=== PATIENT | female | born 1980 | race Caucasian/White ===

== ENCOUNTER 2016-12-09 11:44 | Emergency (ER) ==
[2016-12-09 11:44] VITALS: BMI 28.3
[2016-12-09 11:50] VITALS: BP 137/90; TEMP 96.7
--- NOTE | 2016-12-09 12:33 | ED.PDOC ---
General ED Provider: Dr. ALISON GARCIA JR Chief Complaint: Vaginal Discharge/Swelling Stated Complaint: pt used a deoderant tampon once last month and states she is allergic to perfumes. since then she has been itching, possibly scratched some areas raw. feels a lot of pressure and has large amount of creamy brown discharge with foul odor[End]1 month 96.7 101 18 98% 137/90 10 Time Seen by Physician: 12:31 Mode of Arrival: Walk-In Information Source: Patient Exam Limitations: Altered mental status Primary Care Provider: MAXIMUS HURLEY Nursing and Triage Documentation Reviewed and Agree: No Review of Systems - Review Of Systems Constitutional: Reports: No symptoms Eyes: Reports: No symptoms Ears, Nose, Mouth, Throat: Reports: No symptoms Respiratory: Reports: No symptoms Cardiac: Reports: No symptoms GI: Reports: No symptoms : Reports: Burning, Discharge, Pain Musculoskeletal: Reports: No symptoms Skin: Reports: Lesions, Lumps Neurological: Reports: No symptoms Endocrine: Reports: No symptoms Hematologic/Lymphatic: Reports: No symptoms All Other Systems: Other Past Medical History - Past Medical History Previously Healthy: No Endocrine: Reports: Dyslipidemia Cardiovascular: Reports: None, Hypertension Respiratory: Reports: None Hematological: Reports: None Gastrointestinal: Reports: GERD Genitourinary: Reports: None Neuro/Psych: Reports: Anxiety, Depression, Bipolar Disorder, Schizophrenia, PTSD Musculoskeletal: Reports: None, Arthritis Cancer: Reports: None Last Menstrual Period: nov 3 - Surgical History General Surgical History: Reports: Tubal ligation, Unknown - Family History Family History: Reports: Unknown - Social History Smoking Status: Current every day smoker Hx Substance Use: No Alcohol Screening: Occasionally Physical Exam - Physical Exam Appearance: Ill-appearing Pain Distress: Moderate Eyes: KOLE, EOMI, Conjunctiva clear ENT: Ears normal, Nose normal, Oropharynx normal Neck: Supple Respiratory: Airway patent, Breath sounds clear, Breath sounds equal, Respirations nonlabored Cardiovascular: RRR, Pulses normal, No rub, No murmur GI/: Soft, No masses, Bowel sounds normal, No Organomegaly, Tender, Mass ( superficial nodules) Musculoskeletal: Normal strength, ROM intact, No edema, No calf tenderness Skin: Warm, Dry, Normal color Neurological: Sensation intact, Motor intact, Reflexes intact, Cranial nerves intact, Alert, Oriented Psychiatric: Affect appropriate, Mood appropriate Critical Care Note - Critical Care Note Total Time (mins): 0 Course - Course Orders, Labs, Meds: Lab Review 12/09/16 13:31 Clue Cells (Wet Prep) None seen Trichomonas (Wet Prep) None seen Vaginal WBC Few DMITRY Preparation No fungal elements Orders Category Date Time Status CHLAMYDIA/GC AMPLIFICATION Stat LAB 12/09/16 13:31 Received DMITRY PREP Stat LAB 12/09/16 13:31 Completed VAGINAL CULTURE [GENITAL CULTURE] Stat LAB 12/09/16 13:31 Received WET PREP Stat LAB 12/09/16 13:31 Completed Ceftriaxone Sodium [Rocephin] MEDS 12/09/16 12:54 Discontinued 250 mg IM ONCE STA Lidocaine HCl/Pf [Lidocaine 1 % Amp 5 ml (Sutures)] MEDS 12/09/16 12:54 Discontinued 0.9 ml IM ONCE STA Medications Discontinued Medications Generic Name Dose Route Start Last Admin Trade Name Freq PRN Reason Stop Dose Admin Ceftriaxone Sodium 250 mg 12/09/16 12:54 12/09/16 13:06 Rocephin IM 12/09/16 12:55 250 mg ONCE STA Administration Lidocaine HCl 0.9 ml 12/09/16 12:54 12/09/16 13:07 Lidocaine 1 % Amp 5 Ml (Sutures) IM 12/09/16 12:55 0.9 ml ONCE STA Administration Vital Signs: Temp Pulse Resp BP Pulse Ox 12/09/16 11:44 96.7 F L 101 H 18 137/90 98 Departure - Departure Time of Disposition: 13:37 Disposition: HOME SELF-CARE Discharge Problem: Vaginal discharge Instructions: Bacterial Vaginosis (ED) Condition: Good Pt referred to PMD for follow-up: Yes Additional Instructions: no fungal or yeast seen on tests Rocephin given finish doxycycline and metronidazole discharge should resolve quickly recheck next week PMD culture results return if fever or worsening Prescriptions: Doxycycline Monohydrate [Monodox] 100 mg PO BID #20 capsule Metronidazole [Flagyl] 500 mg PO BID #20 tablet Allergies/Adverse Reactions: Allergies codeine Adverse Reaction (Verified 07/18/16 13:36) perfume Adverse Reaction (Verified 12/09/16 11:50) rosuvastatin calcium [From Crestor] Adverse Reaction (Verified 07/18/16 13:36) poppy seed salad dressing Adverse Reaction (Uncoded 07/08/16 13:08) Home Medications: Ambulatory Orders Clonazepam [Klonopin] 0.5 mg PO QID #120 10/06/16 Sertraline HCl [Zoloft] 100 mg PO BID #60 10/06/16 Trazodone HCl 100 mg PO BEDTIME #30 10/06/16 Ziprasidone HCl [Geodon] 60 mg PO BID #60 10/06/16 Doxycycline Monohydrate [Monodox] 100 mg PO BID #20 capsule 12/09/16 Fenofibrate 54 mg PO DAILY 12/09/16 Metronidazole [Flagyl] 500 mg PO BID #20 tablet 12/09/16
[2016-12-09] MEDS ORDERED: ROCEPHIN IM STA (12:54)
[2016-12-09] MEDS ORDERED: LIDOCAINE 1 % AMP 5 ML (SUTURES) IM STA (12:54)
[2016-12-09 13:32] LABS: KOH PREP NO FUNGAL ELEMENTS (NOT PRESENT); WBC FEW (FEW)
[2016-12-13 15:14] LABS: GENITAL CULTURE Final report (.)
== END 2016-12-09 13:57 | disposition home or self-care (01) ==
LOC: ED 11:44
DX: N76.0 Acute vaginitis (principal); F17.210 Nicotine dependence, cigarettes, uncomplicated
CPT/HCPCS: 36415; 87070; 87210; 87800; 96372; 99283

== ENCOUNTER 2016-12-26 08:16 | Outpatient (CLI) ==
[2016-12-26 13:19] LABS: ALBUMIN 3.6 g/dL (3.4-5.0); ALBUMIN/GLOBULIN RATIO 0.9; ANION GAP 13.3; BILIRUBIN,TOTAL 0.36 mg/dL (0.00-1.20); BUN/CREATININE RATIO 13.63; CALCIUM 9.5 mg/dL (8.2-10.2); CHOL/HDL RATIO 5.3 (4.5-5.5); CREATININE 0.88 mg/dL (0.60-1.30); POTASSIUM 4.3 mmol/L (3.5-5.10); TOTAL PROTEIN 7.6 g/dL (6.4-8.2)
== END 2016-12-26 08:17 | disposition home or self-care (01) ==
LOC: LAB 08:16
PROVIDERS: ATTEND Nurse Practitioner Family
DX: E78.5 Hyperlipidemia, unspecified (principal)
CPT/HCPCS: 36415; 80053; 80061

== ENCOUNTER 2017-03-24 12:06 | Outpatient (CLI) ==
[2017-03-24 13:48] LABS: BASOPHILS # (AUTO) 0.1 K/uL (0-0.2); BASOPHILS % (AUTO) 0.7 % (0.0-3.0); EOSINOPHILS # (AUTO) 0.1 K/ul (0.0-0.7); EOSINOPHILS % (AUTO) 1.5 % (0.0-7.0); HEMATOCRIT 44.2 % (37.0-47.0); HEMOGLOBIN 14.6 g/dl (12.0-16.0); IMMATURE GRANULOCYTE % (AUTO) 0.4 % (0.0-5.0); LYMPHOCYTES # (AUTO) 2.1 K/uL (0.60-3.4); MEAN CORPUSCULAR HEMOGLOBIN 28.7 pg (27.0-31.0); MEAN CORPUSCULAR VOLUME 86.8 fl (81.0-99.0); MONOCYTES # (AUTO) 0.5 K/uL (0.4-2.0); MONOCYTES % (AUTO) 6.1 (0-10); NEUTROPHILS # (AUTO) 5.6 K/ul (2.0-6.9); NEUTROPHILS % (AUTO) 66.3; PLATELET COUNT 284 10^3/uL (140-440); RED BLOOD COUNT 5.09 10^6/ul (4.20-5.40); WHITE BLOOD COUNT 8.41 K/ul (4.6-10.2)
[2017-03-24 15:22] LABS: ALBUMIN 3.8 g/dL (3.4-5.0); ALBUMIN/GLOBULIN RATIO 0.93; ANION GAP 12.2; BILIRUBIN,TOTAL 0.55 mg/dL (0.00-1.20); BUN/CREATININE RATIO 14.13; CALCIUM 9.4 mg/dL (8.2-10.2); CHOL/HDL RATIO 4.9 (4.5-5.5); CREATININE 0.92 mg/dL (0.60-1.30); POTASSIUM 4.2 mmol/L (3.5-5.10); TOTAL PROTEIN 7.9 g/dL (6.4-8.2)
== END 2017-03-24 12:07 | disposition home or self-care (01) ==
LOC: LAB 12:06
PROVIDERS: ATTEND Nurse Practitioner Family
DX: F32.9 Major depressive disorder, single episode, unspecified (principal); E78.5 Hyperlipidemia, unspecified; R73.09 Other abnormal glucose
CPT/HCPCS: 36415; 80053; 80061; 83036; 85025

== ENCOUNTER 2017-08-18 12:54 | Outpatient (CLI) ==
[2017-08-18 13:09] LABS: BASOPHILS # (AUTO) 0.1 K/uL (0-0.2); EOSINOPHILS # (AUTO) 0.7 K/ul (0.0-0.7); EOSINOPHILS % (AUTO) 5.7 % (0.0-7.0); HEMATOCRIT 35.2 % (37.0-47.0); HEMOGLOBIN 11.8 g/dl (12.0-16.0); IMMATURE GRANULOCYTE % (AUTO) 0.5 % (0.0-5.0); LYMPHOCYTES # (AUTO) 2.1 K/uL (0.60-3.4); LYMPHOCYTES % (AUTO) 16.9 (10.0-50.0); MEAN CORPUSCULAR HEMOGLOBIN 28.7 pg (27.0-31.0); MEAN CORPUSCULAR HGB CONC 33.5 (31.8-35.4); MEAN CORPUSCULAR VOLUME 85.6 fl (81.0-99.0); MONOCYTES # (AUTO) 0.9 K/uL (0.4-2.0); MONOCYTES % (AUTO) 7.3 (0-10); NEUTROPHILS # (AUTO) 8.4 K/ul (2.0-6.9); NEUTROPHILS % (AUTO) 68.6; PLATELET COUNT 448 10^3/uL (140-440); RED BLOOD COUNT 4.11 10^6/ul (4.20-5.40); WHITE BLOOD COUNT 12.21 K/ul (4.6-10.2)
[2017-08-18 13:27] LABS: ALBUMIN 3.3 g/dL (3.4-5.0); ALBUMIN/GLOBULIN RATIO 0.83; ANION GAP 14.7; BILIRUBIN,TOTAL 0.49 mg/dL (0.00-1.20); BUN/CREATININE RATIO 13.18; CALCIUM 9.7 mg/dL (8.2-10.2); CHOL/HDL RATIO 3.6 (4.5-5.5); CREATININE 0.91 mg/dL (0.60-1.30); POTASSIUM 3.7 mmol/L (3.5-5.10); TOTAL PROTEIN 7.3 g/dL (6.4-8.2)
== END 2017-08-18 12:55 | disposition home or self-care (01) ==
LOC: LAB 12:54
PROVIDERS: ATTEND Nurse Practitioner Family
DX: E78.5 Hyperlipidemia, unspecified (principal); F20.9 Schizophrenia, unspecified; F31.9 Bipolar disorder, unspecified
CPT/HCPCS: 36415; 80053; 80061; 80178; 85025

== ENCOUNTER 2017-08-25 22:33 | Emergency (ER) ==
[2017-08-25 22:50] VITALS: BP 143/89; TEMP 97.5; BMI 23.0
[2017-08-25] MEDS ORDERED: KLONOPIN PO STA (23:06)
--- NOTE | 2017-08-25 23:09 | ED.PDOC ---
General ED Provider: Dr. HEATHER TADEO Chief Complaint: Medication Refill Stated Complaint: patient states she could not get to her medications since they are locked up in a storage unit and someone has the keys. The police are looking for him. She is in need of her night time Klonipin. Time Seen by Physician: 23:09 Mode of Arrival: Walk-In Information Source: Patient Exam Limitations: No limitations Primary Care Provider: NABEEL ADAM Nursing and Triage Documentation Reviewed and Agree: Yes Psychological Complaint Exam - Psychiatric Complaint/Exam Patient Complains Of: Present: Other (anxiety ) Onset/Duration: tonight Symptoms Are: Still present Timing: Constant Initial Severity: Severe Character: Present: Depressed, Fearful, Anxious Associated Signs And Symptoms: Reports: Sleep disturbance Related History: Denies: Suicidal thoughts, Suicidal plan, Suicidal gestures, Homicidal thoughts, Homicidal plan, Homicidal gestures, Prior attempts, Recent stressors, Drug ingestion Completed Suicide Risk Factors: None Patient Accompanied By: Friend Patient In Custody Of Police: No Social Withdrawal Present: No Social Isolation Present: No Prior Suicide Attempt: No Injury From Prior Suicide Attempt: No Related Surgical History: Reports: None Patient Uncooperative For Exam: No Mood: Present: Anxious Appearance: Present: Clean Thought Process: Present: Logical Insight: Present: Good Memory: Intact Judgement: Normal Danger To Others: No Differential Diagnoses: Anxiety, Bipolar Disorder Review of Systems - Review Of Systems Constitutional: Reports: No symptoms Neurological: Reports: Anxiety, Depressed, Emotional problems All Other Systems: Reviewed and Negative Past Medical History - Past Medical History Previously Healthy: No Endocrine: Reports: Dyslipidemia Cardiovascular: Reports: None, Hypertension Respiratory: Reports: None Hematological: Reports: None Gastrointestinal: Reports: GERD Genitourinary: Reports: None Neuro/Psych: Reports: Anxiety, Depression, Bipolar Disorder, Schizophrenia, PTSD Musculoskeletal: Reports: None, Arthritis Cancer: Reports: None Last Menstrual Period: 1.5 WEEKS AGO - Surgical History General Surgical History: Reports: Tubal ligation, Unknown - Family History Family History: Reports: Unknown - Social History Smoking Status: Current every day smoker Hx Substance Use: No Alcohol Screening: Occasionally - Immunizations Tetanus Shot up to Date: Yes Physical Exam - Physical Exam Appearance: Well-appearing, No pain distress, Well-nourished Eyes: KOLE, EOMI, Conjunctiva clear ENT: Ears normal, Nose normal, Oropharynx normal Respiratory: Airway patent, Breath sounds clear, Breath sounds equal, Respirations nonlabored Cardiovascular: RRR, Pulses normal, No rub, No murmur GI/: Soft, Nontender, No masses, Bowel sounds normal, No Organomegaly Musculoskeletal: Normal strength, ROM intact, No edema, No calf tenderness Skin: Warm, Dry, Normal color Neurological: Sensation intact, Motor intact, Cranial nerves intact, Alert, Oriented Psychiatric: Anxious, Depressed Critical Care Note - Critical Care Note Total Time (mins): 0 Course - Course Orders, Labs, Meds: Orders Category Date Time Status Clonazepam [Klonopin] MEDS 08/25/17 23:06 Discontinued 0.5 mg PO ONCE STA Ed After Hour Supply Med [Ed After Hours Supply Med MEDS 08/25/17 23:17 Discontinued Sent Home] 1 each PO ONCE ONE Medications Discontinued Medications Generic Name Dose Route Start Last Admin Trade Name Freq PRN Reason Stop Dose Admin Clonazepam 0.5 mg 08/25/17 23:06 08/25/17 23:15 Klonopin PO 08/25/17 23:07 0.5 mg ONCE STA Administration Miscellaneous Information 1 each 08/25/17 23:17 08/25/17 23:29 Ed After Hours Supply Med Sent Home PO 08/25/17 23:18 Not Given ONCE ONE Protocol Vital Signs: Temp Pulse Resp BP Pulse Ox 08/25/17 22:33 97.5 F L 86 20 143/89 H 98 Departure - Departure Time of Disposition: 23:11 Disposition: HOME SELF-CARE Discharge Problem: Medication refill, Bipolar 1 disorder, Anxiety, PTSD (post-traumatic stress disorder) Instructions: Post Traumatic Stress Disorder (ED), Generalized Anxiety Disorder (ED) Condition: Fair Pt referred to PMD for follow-up: Yes Additional Instructions: Take medications as prescribed. Allergies/Adverse Reactions: Allergies divalproex sodium [From Depakote] Allergy (Severe, Unverified 07/11/17 10:29) Lethargic trazodone Allergy (Intermediate, Unverified 08/17/17 14:47) swelling risperidone [From Risperdal] Allergy (Mild, Unverified 07/11/17 10:29) breast discharge codeine Adverse Reaction (Unverified 08/25/17 22:46) HALLUCINATES perfume Adverse Reaction (Unverified 07/11/17 10:29) rosuvastatin calcium [From Crestor] Adverse Reaction (Unverified 07/11/17 10:29) poppy seed salad dressing Adverse Reaction (Uncoded 07/08/16 13:08) Home Medications: Ambulatory Orders Fenofibrate 54 mg PO DAILY 12/09/16 Aspirin [Aspirin Ec] 81 mg PO DAILY 08/17/17 Cyanocobalamin (Vitamin B-12) [Vitamin B12] 2,500 mcg PO DAILY 08/17/17 Fenofibrate Nanocrystallized [Fenofibrate] 48 mg PO DAILY 08/17/17 Hydrochlorothiazide 25 mg PO DAILY 08/17/17 Lucas Carbonate 300 mg PO BID 08/17/17 Olanzapine [Zyprexa] 20 mg PO DAILY 08/17/17 Clonazepam [Klonopin] 0.5 mg PO QID 08/25/17 Transfer Form Completed: Yes Disposition Discussed With: Patient
[2017-08-25] MEDS ORDERED: ED AFTER HOURS SUPPLY MED SENT HOME PO ONE (23:17)
== END 2017-08-25 23:34 | disposition home or self-care (01) ==
LOC: ED 22:33
DX: Z76.0 Encounter for issue of repeat prescription (principal); F41.9 Anxiety disorder, unspecified; F43.10 Post-traumatic stress disorder, unspecified; F31.9 Bipolar disorder, unspecified
CPT/HCPCS: 99282

== ENCOUNTER 2017-09-17 12:34 | Emergency (ER) | payer OTHER ==
[2017-09-17 12:41] VITALS: BP 165/89; TEMP 98.4; BMI 23.1
--- NOTE | 2017-09-17 13:17 | ED.PDOC ---
General ED Provider: Dr. YOANDY LEE Chief Complaint: Behavioral Complaint Stated Complaint: Brought in by police. Patient is homeless, wandering, confused , supposed to be on several meds but has none of them. Hasn't eaten in 2 days. Time Seen by Physician: 13:16 Mode of Arrival: Walk-In Information Source: Patient, Police Primary Care Provider: NABEEL ADAM Nursing and Triage Documentation Reviewed and Agree: Yes Psychological Complaint Exam - Psychiatric Complaint/Exam Patient Complains Of: Present: Depression Onset/Duration: weeks to months Symptoms Are: Still present Timing: Constant Initial Severity: Mild Current Severity: Moderate Character: Present: Depressed Aggravating: Reports: Medication noncompliance Associated Signs And Symptoms: Reports: Hallucinating (hears voices) Related History: Denies: Suicidal thoughts, Suicidal plan, Suicidal gestures, Homicidal thoughts Completed Suicide Risk Factors: , Living alone, Unemployed Patient Accompanied By: Mental Health Worker Patient In Custody Of Police: Yes Social Withdrawal Present: No Social Isolation Present: Yes Prior Suicide Attempt: No Injury From Prior Suicide Attempt: No Related Surgical History: Reports: None Patient Uncooperative For Exam: No Mood: Present: Depressed Appearance: Present: Clean Thought Process: Present: Logical Insight: Present: Poor Memory: Intact Judgement: Normal Danger To Others: No Patient Medically Stable For: Psych evaluation, Referral Differential Diagnoses: Bipolar Disorder, Depression Review of Systems - Review Of Systems Constitutional: Reports: No symptoms Eyes: Reports: No symptoms Ears, Nose, Mouth, Throat: Reports: No symptoms Respiratory: Reports: No symptoms Cardiac: Reports: No symptoms GI: Reports: No symptoms : Reports: No symptoms Musculoskeletal: Reports: No symptoms Skin: Reports: No symptoms Neurological: Reports: Depressed All Other Systems: Reviewed and Negative Past Medical History - Past Medical History Previously Healthy: No Endocrine: Reports: Dyslipidemia Cardiovascular: Reports: None, Hypertension Respiratory: Reports: None Hematological: Reports: None Gastrointestinal: Reports: GERD Genitourinary: Reports: None Neuro/Psych: Reports: Anxiety, Depression, Bipolar Disorder, Schizophrenia, PTSD Musculoskeletal: Reports: None, Arthritis Cancer: Reports: None Last Menstrual Period: NOW - Surgical History General Surgical History: Reports: Tubal ligation, Unknown - Family History Family History: Reports: Unknown - Social History Smoking Status: Current every day smoker Hx Substance Use: No Alcohol Screening: None Physical Exam - Physical Exam Appearance: Well-appearing, No pain distress, Well-nourished Ill-appearing: None Pain Distress: None Eyes: KOLE, EOMI, Conjunctiva clear ENT: Ears normal, Nose normal, Oropharynx normal Neck: Supple Respiratory: Airway patent, Breath sounds clear, Breath sounds equal, Respirations nonlabored Cardiovascular: RRR, Pulses normal, No rub, No murmur GI/: Soft, Nontender, No masses, Bowel sounds normal, No Organomegaly Musculoskeletal: Normal strength, ROM intact, No edema, No calf tenderness Skin: Warm, Dry, Normal color (head lice nits noted during exam) Neurological: Sensation intact, Motor intact, Reflexes intact, Cranial nerves intact, Alert, Oriented Critical Care Note - Critical Care Note Total Time (mins): 0 Course - Course Hematology/Chemistry: 09/17/17 13:35 09/17/17 13:35 Orders, Labs, Meds: Lab Review 09/17/17 09/17/17 09/17/17 12:40 12:47 13:35 WBC 11.14 H RBC 4.30 Hgb 12.5 Hct 37.6 MCV 87.4 MCH 29.1 MCHC 33.2 RDW Coeff of Mahad 15.1 H Plt Count 344 Immature Gran % (Auto) 0.3 Neut % (Auto) 77.0 Lymph % (Auto) 14.4 [place] % (Auto) 5.0 Eos % (Auto) 2.3 Baso % (Auto) 1.0 Immature Gran # (Auto) 0.0 Neut # 8.6 H Lymph # 1.6 [place] # 0.6 Eos # 0.3 Baso # 0.1 Sodium Potassium Chloride Carbon Dioxide Anion Gap BUN Creatinine Estimated GFR (MDRD) BUN/Creatinine Ratio Glucose Calcium Total Bilirubin AST ALT Alkaline Phosphatase Total Protein Albumin Globulin Albumin/Globulin Ratio Urine Color Yellow Urine Clarity Clear Urine pH 6.0 Ur Specific [place] 1.010 Urine Protein Negative Urine Glucose (UA) Negative Urine Ketones Negative Urine Blood Trace-intact Urine Nitrite Negative Urine Bilirubin Negative Urine Urobilinogen 0.2 Ur Leukocyte Esterase Negative Urine Microscopic RBC 0-2 Ur Squamous Epith Cells Not present Ur Transition Epith Cell 2-5 Urine Opiates Screen Negative Ur Oxycodone Screen Negative Urine Methadone Screen Negative Ur Propoxyphene Screen Negative Ur Barbiturates Screen Negative U Tricyclic Antidepress Negative Ur Phencyclidine Scrn Negative Ur Amphetamine Screen Negative U Methamphetamines Scrn Negative U Benzodiazepines Scrn Negative Urine Cocaine Screen Negative U Cannabinoids Screen Positive 09/17/17 13:35 WBC RBC Hgb Hct MCV MCH MCHC RDW Coeff of [place]ad Plt Count Immature Gran % (Auto) Neut % (Auto) Lymph % (Auto) [place] % (Auto) Eos % (Auto) Baso % (Auto) Immature Gran # (Auto) Neut # Lymph # [place] # Eos # Baso # Sodium 142 Potassium 3.9 Chloride 109 H Carbon Dioxide 23 Anion Gap 13.9 BUN 6 L Creatinine 0.78 Estimated GFR (MDRD) 82.00 BUN/Creatinine Ratio 7.69 Glucose 90 Calcium 9.4 Total Bilirubin 0.51 AST 13 L ALT 11 L Alkaline Phosphatase 68 Total Protein 7.4 Albumin 3.4 Globulin 4.0 Albumin/Globulin Ratio 0.85 Urine Color Urine Clarity Urine pH Ur Specific [place] Urine Protein Urine Glucose (UA) Urine Ketones Urine Blood Urine Nitrite Urine Bilirubin Urine Urobilinogen Ur Leukocyte Esterase Urine Microscopic RBC Ur Squamous Epith Cells Ur Transition Epith Cell Urine Opiates Screen Ur Oxycodone Screen Urine Methadone Screen Ur Propoxyphene Screen Ur Barbiturates Screen U Tricyclic Antidepress Ur Phencyclidine Scrn Ur Amphetamine Screen U Methamphetamines Scrn U Benzodiazepines Scrn Urine Cocaine Screen U Cannabinoids Screen Orders Category Date Time Status CBC W/ AUTO DIFF Stat LAB 09/17/17 13:35 Completed COMPREHENSIVE METABOLIC PANEL Stat LAB 09/17/17 13:35 Completed URINALYSIS C & S IF INDICATED Stat LAB 09/17/17 12:40 Completed URINE DRUG SCREEN (RAPID FOR ED) [DRUG SCREEN, URINE, LAB 09/17/17 12:47 Completed RAPID] Stat Vital Signs: Temp Pulse Resp BP Pulse Ox 09/17/17 12:35 98.4 F 91 H 18 165/89 H 100 Departure - Departure Time of Disposition: 14:26 Disposition: HOME SELF-CARE Discharge Problem: Head lice, Bipolar 1 disorder, depressed Instructions: Bipolar Disorder (ED), Pediculosis (ED) Condition: Good Pt referred to PMD for follow-up: Yes (Follow up with mental health) Prescriptions: Ziprasidone HCl [Geodon] 60 mg PO BID #60 capsule Allergies/Adverse Reactions: Allergies divalproex sodium [From Depakote] Allergy (Severe, Verified 09/17/17 12:41) Lethargic trazodone Allergy (Intermediate, Verified 09/17/17 12:41) swelling risperidone [From Risperdal] Allergy (Mild, Verified 09/17/17 12:41) breast discharge codeine Adverse Reaction (Verified 09/17/17 12:41) HALLUCINATES perfume Adverse Reaction (Verified 09/17/17 12:41) rosuvastatin calcium [From Crestor] Adverse Reaction (Verified 09/17/17 12:41) poppy seed salad dressing Adverse Reaction (Uncoded 07/08/16 13:08) Home Medications: Ambulatory Orders Fenofibrate 54 mg PO DAILY 12/09/16 Aspirin [Aspirin Ec] 81 mg PO DAILY 08/17/17 Clonazepam [Klonopin] 0.5 mg PO QID 08/25/17 Malathion 59 ml TP WEEKLY #59 ml 09/17/17 Sertraline HCl [Zoloft] 200 mg PO BEDTIME 09/17/17 Trazodone HCl 100 mg PO BEDTIME 09/17/17 Ziprasidone HCl [Geodon] 60 mg PO BID 09/17/17 Ziprasidone HCl [Geodon] 60 mg PO BID #60 capsule 09/17/17 Disposition Discussed With: Patient
[2017-09-17 13:44] LABS: BASOPHILS # (AUTO) 0.1 K/uL (0-0.2); EOSINOPHILS # (AUTO) 0.3 K/ul (0.0-0.7); EOSINOPHILS % (AUTO) 2.3 % (0.0-7.0); HEMATOCRIT 37.6 % (37.0-47.0); HEMOGLOBIN 12.5 g/dl (12.0-16.0); IMMATURE GRANULOCYTE % (AUTO) 0.3 % (0.0-5.0); LYMPHOCYTES # (AUTO) 1.6 K/uL (0.60-3.4); LYMPHOCYTES % (AUTO) 14.4 (10.0-50.0); MEAN CORPUSCULAR HEMOGLOBIN 29.1 pg (27.0-31.0); MEAN CORPUSCULAR HGB CONC 33.2 (31.8-35.4); MEAN CORPUSCULAR VOLUME 87.4 fl (81.0-99.0); MONOCYTES # (AUTO) 0.6 K/uL (0.4-2.0); NEUTROPHILS # (AUTO) 8.6 K/ul (2.0-6.9); PLATELET COUNT 344 10^3/uL (140-440); WHITE BLOOD COUNT 11.14 K/ul (4.6-10.2)
[2017-09-17 13:57] LABS: COCAIN SCREEN,URINE NEGATIVE (NEGATIVE)
[2017-09-17 14:04] LABS: ALBUMIN 3.4 g/dL (3.4-5.0); ALBUMIN/GLOBULIN RATIO 0.85; ANION GAP 13.9; BILIRUBIN,TOTAL 0.51 mg/dL (0.00-1.20); BUN/CREATININE RATIO 7.69; CALCIUM 9.4 mg/dL (8.2-10.2); CREATININE 0.78 mg/dL (0.60-1.30); POTASSIUM 3.9 mmol/L (3.5-5.10); TOTAL PROTEIN 7.4 g/dL (6.4-8.2)
[2017-09-17 14:11] LABS: BILIRUBIN,URINE Negative (NEGATIVE); KETONES,URINE Negative (NEGATIVE); LEUKOCYTE ESTERASE ,URINE Negative (NEGATIVE); NITRITE,URINE Negative (NEGATIVE); PROTEIN,URINE Negative (NEGATIVE); URINE, BLOOD Trace-intact (NEGATIVE)
[2017-09-17 14:12] LABS: ADD URINE MICROSCOPIC YES
== END 2017-09-17 14:46 | disposition home or self-care (01) ==
LOC: ED 12:34
DX: B85.0 Pediculosis due to Pediculus humanus capitis (principal); F31.9 Bipolar disorder, unspecified; F32.9 Major depressive disorder, single episode, unspecified; F17.210 Nicotine dependence, cigarettes, uncomplicated; Z91.14 Patient's other noncompliance with medication regimen
CPT/HCPCS: 36415; 80053; 80306; 81001; 85025; 99283

== ENCOUNTER 2018-02-28 12:11 | Emergency (ER) ==
[2018-02-28 12:16] VITALS: BP 135/79; TEMP 97.2; BMI 28.3
--- NOTE | 2018-02-28 12:50 | ED.PDOC ---
General ED Provider: Dr. KHUSHBOO SAMS Chief Complaint: Fall Stated Complaint: LEFT KNEE Time Seen by Physician: 12:15 Mode of Arrival: Wheelchair Information Source: Patient Exam Limitations: No limitations Primary Care Provider: NABEEL ADAM Nursing and Triage Documentation Reviewed and Agree: Yes Reviewed sepsis parameters & appropriate labs ordered?: Yes System Inflammatory Response Syndrome: Not Applicable Sepsis Protocol: For patient's 13 years and over: Temp is 96.8 and below OR 101 and greater Pulse >90 BPM Resp >20/minute Acutely Altered Mental Status Are patient's symptoms suggestive of a new infection, such as: -Pneumonia -Skin, Soft Tissue -Endocarditis -UTI -Bone, Joint Infection -Implantable Device -Acute Abdominal Infection -Wound Infection -Meningitis -Blood Stream Catheter Infection -Unknown System Inflammatory Response Syndrome: Not Applicable Musculoskeletal Complaint Exam - Knee Pain Complaint/Exam Mechanism of Injury: Reports: Trauma (FALL ) Onset/Duration: 1 DAY Symptoms Are: Still present Onset of Pain: Reports: Hours Initial Severity: Moderate Current Severity: Moderate Location: Reports: Discrete (LEFT KNEE ) Character: Reports: Aching Alleviating: Reports: Rest, Position Aggravating: Reports: Movement, Weight bearing, Prolonged standing, Stairs Associated Signs and Symptoms: Denies: Swelling, Redness, Bruising, Fever, Weakness, Numbness, Tingling Able to Bear Weight: Yes Gout Risk Factors: Reports: None Related Surgical History: Denies: Right Knee, Left Knee, Other Orthopedic Surgery Knee Findings: Absent: Swelling, Ecchymosis, Abnormal contour, Rotation, Ligamentous instability, Laceration, Erythema, Warmth, Blisters Josias Test Positive: No Chris Test Positive: No Differential Diagnoses: Internal Derangement Review of Systems - Review Of Systems Constitutional: Reports: No symptoms Eyes: Reports: No symptoms Ears, Nose, Mouth, Throat: Reports: No symptoms Respiratory: Reports: No symptoms Cardiac: Reports: No symptoms GI: Reports: No symptoms : Reports: No symptoms Musculoskeletal: Reports: Joint pain (LEFT PAIN) Skin: Reports: No symptoms Neurological: Reports: No symptoms Endocrine: Reports: No symptoms Hematologic/Lymphatic: Reports: No symptoms All Other Systems: Reviewed and Negative Past Medical History - Past Medical History Previously Healthy: No Endocrine: Reports: Dyslipidemia Cardiovascular: Reports: None, Hypertension Respiratory: Reports: None Hematological: Reports: None Gastrointestinal: Reports: GERD Genitourinary: Reports: None Neuro/Psych: Reports: Anxiety, Depression, Bipolar Disorder, Schizophrenia, PTSD Musculoskeletal: Reports: None, Arthritis Cancer: Reports: None Last Menstrual Period: 2 weeks ago - Surgical History General Surgical History: Reports: Tubal ligation, Unknown - Family History Family History: Reports: Unknown - Social History Smoking Status: Current every day smoker Hx Substance Use: No Alcohol Screening: None - Immunizations Tetanus Shot up to Date: No Physical Exam - Physical Exam Appearance: Well-appearing, No pain distress, Well-nourished Eyes: KOLE, EOMI, Conjunctiva clear ENT: Ears normal, Nose normal, Oropharynx normal Respiratory: Airway patent, Breath sounds clear, Breath sounds equal, Respirations nonlabored Cardiovascular: RRR, Pulses normal, No rub, No murmur GI/: Soft, Nontender, No masses, Bowel sounds normal, No Organomegaly Musculoskeletal: Limited ROM (LEFT KNEE ) Skin: Warm, Dry, Normal color Neurological: Sensation intact, Motor intact, Reflexes intact, Cranial nerves intact, Alert, Oriented Psychiatric: Affect appropriate, Mood appropriate Interpretation - Radiology Interpretation Radiology Interpretation By: Radiologist Critical Care Note - Critical Care Note Total Time (mins): 0 Course - Course Orders, Labs, Meds: Orders Category Date Time Status KNEE, LEFT 4 VIEWS Stat RADS 02/28/18 12:43 Ordered Vital Signs: Temp Pulse Resp BP Pulse Ox 02/28/18 12:12 97.2 F L 94 H 20 135/79 97 Departure - Departure Time of Disposition: 12:50 Disposition: HOME SELF-CARE Discharge Problem: Knee LCL sprain Qualifiers: Encounter type: initial encounter Laterality: left Qualified Code(s): S83.422A - Sprain of lateral collateral ligament of left knee, initial encounter Instructions: Knee Sprain (DC), Knee Sprain (ED) Condition: Good Pt referred to PMD for follow-up: Yes IPMP verified?: No Additional Instructions: Please call your Family Physician as soon as possible to schedule a follow-up appointment. Prescriptions: Hydrocodone/Acetaminophen [[place] 5-325 Tablet] 1 each PO Q6HR PRN #12 tablet PRN Reason: PAIN Allergies/Adverse Reactions: Allergies divalproex sodium [From Depakote] Allergy (Severe, Verified 09/17/17 12:41) Lethargic trazodone Allergy (Intermediate, Verified 09/17/17 12:41) swelling risperidone [From Risperdal] Allergy (Mild, Verified 09/17/17 12:41) breast discharge codeine Adverse Reaction (Verified 09/17/17 12:41) HALLUCINATES perfume Adverse Reaction (Verified 09/17/17 12:41) rosuvastatin calcium [From Crestor] Adverse Reaction (Verified 09/17/17 12:41) poppy seed salad dressing Adverse Reaction (Uncoded 07/08/16 13:08) Home Medications: Ambulatory Orders Fenofibrate 54 mg PO DAILY 12/09/16 Aspirin [Aspirin Ec] 81 mg PO DAILY 08/17/17 Clonazepam [Klonopin] 0.5 mg PO BID 08/25/17 Malathion 59 ml TP WEEKLY #59 ml 09/17/17 Sertraline HCl [Zoloft] 100 mg PO BID 09/17/17 Trazodone HCl 100 mg PO BEDTIME 09/17/17 Ziprasidone HCl [Geodon] 60 mg PO BID 09/17/17 Ziprasidone HCl [Geodon] 60 mg PO BID #60 capsule 09/17/17 Hydrocodone/Acetaminophen [[place] 5-325 Tablet] 1 each PO Q6HR PRN #12 tablet 03/14
--- NOTE | 2018-02-28 13:19 | DI ---
EXAM: Left knee four views HISTORY: Pain COMPARISON: None FINDINGS: The bones are normal. The medial, lateral, and patellofemoral compartments are normal in h eight. Small joint effusion. IMPERSSION: 1. No fracture or dislocation. 2. Small joint effusion.
== END 2018-02-28 13:49 | disposition home or self-care (01) ==
LOC: ED 12:11
DX: S83.422A Sprain of lateral collateral ligament of left knee, initial encounter (principal); W19.XXXA Unspecified fall, initial encounter; F17.210 Nicotine dependence, cigarettes, uncomplicated
CPT/HCPCS: 99282

== ENCOUNTER 2018-03-08 10:01 | Outpatient (CLI) ==
--- NOTE | 2018-03-08 13:43 | MRI ---
EXAM: MRI left knee without contrast. HISTORY: Left knee pain. No left knee surgery reported. Fell down stairs. Swelling. Cannot strai ghten knee. Instability.. TECHNIQUE: Using a local extremity coil on a high field strength magnet multiplanar multisequence ma gnet resonance imaging was performed of the left knee without intravenous or intra-articular gadolini um contrast. FINDINGS: I have reviewed the patient's four view plain film examination left knee 02/28/2018 which shows suprapatellar effusion. Within the medial compartment the medial meniscus is intact without discrete surfacing meniscal tear. Minimal subchondral bone marrow edema/contusion over the posterior weightbearing rim of the medial tibial plateau. The medial compartment cartilage congruent. Within the lateral compartment the lateral meniscus is intact without discrete surfacing meniscal tea r. Large area of subchondral bone marrow edema/contusion with subchondral fracture over the posterio r weightbearing rim the lateral tibial plateau. No depression or incongruity. Proximal left tibiofi bular joint intact. The lateral compartment cartilage congruent. Within the patellofemoral compartment the patella seated with intact medial and lateral patellar reti nacular fibers. The patellar and trochlear groove cartilage congruent without underlying subchondral edema. Moderate sized left knee effusion. Prominent plica. No large osteochondral loose bodies. Intact PC L fibers of normal orientation. High-grade partial tearing of the ACL . This is along mid substance fibers . No definitive translation of the tibia with respect to the femur. The extensor mechanism is intact. Superficial circumferential soft tissue edema/swelling. The medial collateral ligament a s well as lateral collateral ligament complex and posterolateral corner intact.. IMPRESSION: No discrete surfacing meniscal tear identified. Bone marrow edema/contusion pattern medial and lateral compartments. This is most evident over the p osterior weightbearing rim of the lateral tibial plateau with bone marrow edema/contusion and subchon dral fracture. Moderate size of the effusion. Prominent plica. Superficial circumferential soft tissue edema/swelli ng. High-grade partial tearing of the ACL. This is along mid substance fibers. Intact PCL. Correlate wi physical exam. No definitive translation of the tibia with respect to the femur. Intact collateral ligaments.
== END 2018-03-08 10:02 | disposition home or self-care (01) ==
LOC: RAD 10:01
PROVIDERS: ATTEND Nurse Practitioner Family
DX: M25.562 Pain in left knee (principal); M25.462 Effusion, left knee; I10 Essential (primary) hypertension; E78.5 Hyperlipidemia, unspecified
CPT/HCPCS: 36415; 80053; 80061; 85007; 85025

== ENCOUNTER 2018-03-15 10:00 | Outpatient (RCR) ==
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
--- NOTE | 2018-03-15 15:10 | RS.OPPTDN ---
Subjective Date of Note: 03/15/18 Visit #: 2 Date of Evaluation: 03/13/18 Payer Source: Medicaid Treatment Diagnosis: high grade partial tearing of L ACL, knee pain, joint effusion Current Subjective/complaints:: Patient reports she has seen improvement in pain and ROM of the left knee since starting therapy. She continues to express concern that she will be unable to recover and be able to play sports with her son. She has order and is going to be fitted for brace today. Pain Assessment - Pain Description Pain Location: Left knee Current Pain Intensity: 3/10 following meds and treatment Worst Pain Intensity: 6/10 prior to medication - Treatment Modality: Electrical Stim Unattended Parameters/Method Applied: [id number] HVGC to 140p.v. with 4 pads cross current to the left knee with CP prior to EX. Patient Position: Supine - Heat/Cryotherapy Treatment: Cryotherapy (with Estim) Interventions - Exercise/Activities/Manual Therapy Exercises/Activities: Patient performs AP, QS, ham sets, and assisted heel slides. 2s/10reps each. SLR, SLR/VMO, and hip abd, each 2s/5reps each with assist. Manually resisted ankle inv, eversion, and df, 4s/5reps each. Isometric hip add with ball, 3s/10reps. In sitting, assisted heel slides and isometric ham sets. Ankle pumps and assist LAQ. Patient education of dx, joint mechanics, and HEP. Discussed safety and technique with one crutch in home. Total minutes of Exercise: 25mins Manual Therapy: n/a HOME EXERCISE PROGRAM: pt given written HEP including AP, OS, SLR, hip abd. Isometric hip add with ball or pillow, heel slides in sitting. - Charges Timed Code Treatment Minutes: 25mins Total Treatment Time: 45mins Procedures billed for this date of service:: CP, Estim unattended, EX2 Assessment: Patient attentive to all instruction. She is very motivated to work on HEP and is already reporting some progress. Patient Education: Education of diagnosis, Body/Joint mechanics, Home Exercise Program, Home Safety, Activity Modification, Education of Plan of Care Patient demonstrates compliance with HEP?: Yes Short Term Goals Goal #1: Rate pain < 4/10 Goal to be met by: 03/20/18 Goal #2: pt independent with initial HEP Goal to be met by: 03/20/18 Progress towards Goal:: Progressing Goal #3: pt with decreased joint effusion L knee Goal to be met by: 03/20/18 Progress towards Goal:: Progressing [facility] Goals Goal #1: Rate pain <3/10 with activity Goal to be met by: 03/27/18 Goal #2: pt amb community distances with crutches with decreased pain. Goal to be met by: 03/27/18 Progress towards goal: Progressing Goal #3: pt improve pain free ROM Goal to be met by: 03/27/18 Goal #4: pt report decreased difficulty performing ADL's Goal to be met by: 03/27/18 Plan PLAN OF CARE EXPIRES ON:: 03/27/18 ORDER # VISITS AND/OR THROUGH DATE: 03/27/18 PLAN: Continue modalities and progress with ROM and strengthening exercise.
--- NOTE | 2018-03-20 15:12 | RS.CXNS ---
Date of scheduled appointment: 03/20/18 Type: No Show (No call from patient to cancel or reschedule.)
--- NOTE | 2018-03-22 12:55 | RS.CXNS ---
Date of scheduled appointment: 03/22/18 Type: No Show (No call/No show. Patient will be discharged.)
== END 2018-03-26 23:59 ==
PROVIDERS: ATTEND Orthopaedic Surgery
DX: M25.562 Pain in left knee (principal); S83.512D Sprain of anterior cruciate ligament of left knee, subsequent encounter

== ENCOUNTER 2018-09-27 13:30 | Outpatient (CLI) ==
[2018-03-08 10:05] VITALS: BMI 28.3
== END 2018-09-27 13:31 | disposition home or self-care (01) ==
LOC: LAB 13:30
PROVIDERS: ATTEND Nurse Practitioner Family
DX: I10 Essential (primary) hypertension (principal); Z72.0 Tobacco use; E78.5 Hyperlipidemia, unspecified
CPT/HCPCS: 36415; 80053; 80061; 84443; 85025

== ENCOUNTER 2019-01-16 08:45 | Outpatient (CLI) ==
[2018-03-08 10:05] VITALS: BMI 28.3
== END 2019-01-16 08:46 | disposition home or self-care (01) ==
LOC: LAB 08:45
PROVIDERS: ATTEND Nurse Practitioner Family
DX: E78.5 Hyperlipidemia, unspecified (principal); I10 Essential (primary) hypertension
CPT/HCPCS: 36415; 80053; 80061; 85025

== ENCOUNTER 2019-07-25 16:09 | Outpatient (CLI) | payer OTHER ==
[2018-03-08 10:05] VITALS: BMI 28.3
== END 2019-07-25 16:10 | disposition home or self-care (01) ==
LOC: LAB 16:09
PROVIDERS: ATTEND Nurse Practitioner Family
DX: E78.5 Hyperlipidemia, unspecified (principal)
CPT/HCPCS: 36415; 80053; 80061